=== PATIENT | male | born 1950 | race Caucasian/White ===

== ENCOUNTER 2023-05-21 18:22 | Inpatient (IN) | payer MEDICARE ==
[2023-05-21] MEDS ORDERED: Calcium Carbonate 500 MG ChewTAB PO PRN (21:51)
[2023-05-21] MEDS ORDERED: Acetaminophen 325 MG TAB PO PRN (21:51)
[2023-05-21] MEDS ORDERED: Magnesium 2 GM/50 ML(in water) 2 GM in Premix 1 BAG IVPB SCH (22:00)
[2023-05-21 23:29] VITALS: BMI 30.2
[2023-05-22 03:33] LABS: #Basophils 0.1 thou/uL (0.0-0.2); #Eosinphils 0.4 thou/uL (0.0-0.7); #Neutrophils 5.7 thou/uL (1.40-6.50); %Basophils 0.9 % (0.0-1.0); %Eosinophils 4.4 % (0.0-10.0); %Lymphocytes 12.4 % (21.0-51.0); %Monocytes 12.4 % (0.0-10.0); %Neutrophils 69.5 % (42.0-75.0); Hematocrit 42.7 % (42.0-52.0); Hemoglobin 13.4 g/dL (14.0-18.0); Mean Corpuscular HGB CONC 31.4 g/dL (32.0-36.0); Mean Corpuscular Hemoglobin 30.5 pg (27.0-31.0); Mean Platelet Volume 10.4 fL (7.4-10.4); Platelet Count 174 10x3/uL (130-400); RBC Distribution Width 13.9 % (11.5-14.5); White Blood Cell (WBC) Count 8.2 10x3/uL (4.8-10.8)
[2023-05-22 03:58] LABS: ALT (SGPT) 49 U/L (8-55); AST (SGOT) 27 U/L (5-34); Alkaline Phosphatase 51 U/L (40-110); Anion Gap 14 mmol/L (10-20); BUN (Urea Nitrogen) 14 mg/dL (8.4-25.7); Bilirubin, Total 2.4 mg/dL (0.2-1.2); Calc. Creatinine Clearance 96 mL/min (70-130); Calcium 8.2 mg/dL (7.8-10.44); Carbon Dioxide 20 mmol/L (23-31); Chloride 106 mmol/L (98-107); Estimated GFR 91; Globulin 2.9 g/dL (2.4-3.5); Glucose 83 mg/dL (83-110); Magnesium 2.2 mg/dL (1.6-2.6); Potassium 4.1 mmol/L (3.5-5.1); Protein, Total 5.9 g/dL (5.8-8.1); Sodium 136 mmol/L (136-145)
[2023-05-22] MEDS ORDERED: Communication Order-Pharmacy FS SCH ×3 (08:20→09:30)
[2023-05-22] MEDS ORDERED: FLU VACC QS2023(65UP)/MF59C/PF 60 MCG/0.5 ML SYRINGE IM ONE (09:00)
[2023-05-22] MEDS: Furosemide 20 MG/2 ML VIAL SLOW IVP SCH (09:20)
[2023-05-22] MEDS: Famotidine/PF 20 mg/2ml Vial SLOW IVP SCH ×2 (09:20→21:39)
[2023-05-22] MEDS: Digoxin 0.25 MG TAB PO SCH (09:20)
[2023-05-22 10:07] LABS: Hematocrit 41.9 % (42.0-52.0); Hemoglobin 13.6 g/dL (14.0-18.0); Platelet Count 202 10x3/uL (130-400)
[2023-05-22] MEDS: Sodium Chloride 0.9% 1,000 ML IV SCH (19:30)
[2023-05-23 03:30] LABS: #Basophils 0.1 thou/uL (0.0-0.2); #Eosinphils 0.3 thou/uL (0.0-0.7); #Monocytes 1.2 thou/uL (0.11-0.59); #Neutrophils 6.5 thou/uL (1.40-6.50); %Basophils 0.5 % (0.0-1.0); %Eosinophils 3.4 % (0.0-10.0); %Lymphocytes 14.3 % (21.0-51.0); %Monocytes 12.6 % (0.0-10.0); Hematocrit 42.8 % (42.0-52.0); Hemoglobin 14.2 g/dL (14.0-18.0); Mean Corpuscular HGB CONC 33.2 g/dL (32.0-36.0); Mean Corpuscular Hemoglobin 30.5 pg (27.0-31.0); Platelet Count 209 10x3/uL (130-400); RBC Distribution Width 13.7 % (11.5-14.5); Red Blood Cell (RBC) Count 4.65 mill/uL (4.70-6.10); White Blood Cell (WBC) Count 9.5 10x3/uL (4.8-10.8)
[2023-05-23 03:53] LABS: ALT (SGPT) 36 U/L (8-55); AST (SGOT) 14 U/L (5-34); Albumin 3.3 g/dL (3.4-4.8); Alkaline Phosphatase 55 U/L (40-110); Anion Gap 12 mmol/L (10-20); BUN (Urea Nitrogen) 13 mg/dL (8.4-25.7); Bilirubin, Total 1.8 mg/dL (0.2-1.2); Calc. Creatinine Clearance 92 mL/min (70-130); Calcium 8.4 mg/dL (7.8-10.44); Carbon Dioxide 25 mmol/L (23-31); Cardiac Risk 9.3 (Less than 4.5); Chloride 104 mmol/L (98-107); Cholesterol 139 mg/dl (< 200 Desired); Estimated GFR 87; Globulin 2.8 g/dL (2.4-3.5); Glucose 94 mg/dL (83-110); HDL Cholesterol 15 mg/dL (>60 Neg Risk); LDL Cholesterol, Calculated 109 mg/dL; Potassium 3.8 mmol/L (3.5-5.1); Protein, Total 6.1 g/dL (5.8-8.1); Sodium 137 mmol/L (136-145); Triglycerides 74 mg/dL (Less than 150)
[2023-05-23] MEDS: Sodium Chloride 0.9% 1,000 ML IV SCH ×3 (07:37→21:08)
[2023-05-23] MEDS: Famotidine/PF 20 mg/2ml Vial SLOW IVP SCH ×2 (08:12→21:11)
[2023-05-23] MEDS: Furosemide 20 MG/2 ML VIAL SLOW IVP SCH (08:13)
[2023-05-23] MEDS: Digoxin 0.25 MG TAB PO SCH (08:13)
[2023-05-23] MEDS ORDERED: Amiodarone 150 MG in Dextrose 5% in Water 100 ML IVPB SCH (10:30)
[2023-05-23] MEDS ORDERED: Metoprolol Tartrate 25 MG TAB PO SCH (10:30)
[2023-05-23] MEDS: Amiodarone 450 MG in Dextrose 5% in Water 250 ML IVPB SCH (12:15)
[2023-05-23] MEDS: Metoprolol Tartrate 25 MG TAB PO SCH (21:11)
[2023-05-24] MEDS: Sodium Chloride 0.9% 1,000 ML IV SCH (03:12)
[2023-05-24] MEDS: Metoprolol Tartrate 25 MG TAB PO SCH ×2 (06:00→22:10)
[2023-05-24] MEDS ORDERED: Sodium Chloride 0.9% 1,000 ML IV SCH ×2 (06:00→09:18)
[2023-05-24 06:42] LABS: #Eosinphils 0.3 thou/uL (0.0-0.7); #Neutrophils 6.8 thou/uL (1.40-6.50); %Basophils 0.4 % (0.0-1.0); %Eosinophils 2.9 % (0.0-10.0); %Lymphocytes 12.9 % (21.0-51.0); %Neutrophils 72.6 % (42.0-75.0); Hematocrit 42.8 % (42.0-52.0); Hemoglobin 14.1 g/dL (14.0-18.0); Mean Corpuscular HGB CONC 32.9 g/dL (32.0-36.0); Mean Corpuscular Hemoglobin 30.3 pg (27.0-31.0); Mean Corpuscular Volume 91.8 fl (78.0-98.0); Mean Platelet Volume 10.1 fL (7.4-10.4); Platelet Count 219 10x3/uL (130-400); Red Blood Cell (RBC) Count 4.66 mill/uL (4.70-6.10); White Blood Cell (WBC) Count 9.3 10x3/uL (4.8-10.8)
[2023-05-24] MEDS ORDERED: Midazolam HCl 2 mg/2 ml Vial ONE (07:03)
[2023-05-24] MEDS ORDERED: fentaNYL 50 mcg/mL 1 mL Vial ONE (07:03)
[2023-05-24] MEDS ORDERED: Heparin 10,000 UNITS/ 10 ML VIAL ONE (07:03)
[2023-05-24 07:05] LABS: Digoxin 1.25 ng/mL (0.8-2.0)
[2023-05-24 07:15] LABS: ALT (SGPT) 28 U/L (8-55); AST (SGOT) 12 U/L (5-34); Albumin 3.3 g/dL (3.4-4.8); Alkaline Phosphatase 54 U/L (40-110); Anion Gap 14 mmol/L (10-20); BUN (Urea Nitrogen) 14 mg/dL (8.4-25.7); Calc. Creatinine Clearance 86 mL/min (70-130); Calcium 8.4 mg/dL (7.8-10.44); Carbon Dioxide 25 mmol/L (23-31); Chloride 101 mmol/L (98-107); Estimated GFR 85; Globulin 3.1 g/dL (2.4-3.5); Glucose 96 mg/dL (83-110); Potassium 3.9 mmol/L (3.5-5.1); Protein, Total 6.4 g/dL (5.8-8.1); Sodium 136 mmol/L (136-145)
[2023-05-24] MEDS: Digoxin 0.125 MG TAB PO SCH (08:15)
[2023-05-24] MEDS: Famotidine/PF 20 mg/2ml Vial SLOW IVP SCH ×2 (08:16→22:09)
[2023-05-24] MEDS: Furosemide 20 MG/2 ML VIAL SLOW IVP SCH (08:16)
[2023-05-24] MEDS ORDERED: Protamine Sulfate 50 MG/5 ML VIAL ONE (09:02)
[2023-05-24] MEDS ORDERED: Sodium Chloride 0.9% 200 ML IV PRN (09:17)
[2023-05-24] MEDS ORDERED: Nitroglycerin 0.4 MG TAB (25 Tab Bottle) SL PRN (09:17)
[2023-05-24] MEDS ORDERED: Acetaminophen/Codeine 30-300mg Tablet PO PRN ×2 (09:17)
[2023-05-24] MEDS ORDERED: Iopamidol 370 76% 100 ML VIAL ONE (10:41)
[2023-05-24] MEDS: Amiodarone 450 MG in Dextrose 5% in Water 250 ML IVPB SCH (11:10)
[2023-05-25] MEDS: Amiodarone 450 MG in Dextrose 5% in Water 250 ML IVPB SCH (03:36)
[2023-05-25 04:29] LABS: #Eosinphils 0.2 thou/uL (0.0-0.7); #Monocytes 0.9 thou/uL (0.11-0.59); #Neutrophils 7.2 thou/uL (1.40-6.50); %Basophils 0.4 % (0.0-1.0); %Eosinophils 2.1 % (0.0-10.0); %Lymphocytes 10.9 % (21.0-51.0); %Monocytes 9.2 % (0.0-10.0); %Neutrophils 77.1 % (42.0-75.0); Hematocrit 41.6 % (42.0-52.0); Hemoglobin 13.8 g/dL (14.0-18.0); Mean Corpuscular HGB CONC 33.2 g/dL (32.0-36.0); Mean Corpuscular Hemoglobin 30.6 pg (27.0-31.0); Mean Corpuscular Volume 92.2 fl (78.0-98.0); Mean Platelet Volume 10.4 fL (7.4-10.4); Platelet Count 214 10x3/uL (130-400); RBC Distribution Width 14.1 % (11.5-14.5); Red Blood Cell (RBC) Count 4.51 mill/uL (4.70-6.10); White Blood Cell (WBC) Count 9.4 10x3/uL (4.8-10.8)
[2023-05-25] MEDS ORDERED: Sevoflurane 250 ML INH ANEST BOTTLE ONE (05:16)
[2023-05-25 05:49] LABS: ALT (SGPT) 23 U/L (8-55); AST (SGOT) 12 U/L (5-34); Albumin 3.1 g/dL (3.4-4.8); Alkaline Phosphatase 57 U/L (40-110); Anion Gap 14 mmol/L (10-20); BUN (Urea Nitrogen) 12 mg/dL (8.4-25.7); Bilirubin, Total 1.6 mg/dL (0.2-1.2); Calc. Creatinine Clearance 81 mL/min (70-130); Calcium 8.6 mg/dL (7.8-10.44); Carbon Dioxide 23 mmol/L (23-31); Chloride 103 mmol/L (98-107); Estimated GFR 79; Globulin 2.9 g/dL (2.4-3.5); Glucose 144 mg/dL (83-110); Potassium 3.7 mmol/L (3.5-5.1); Sodium 136 mmol/L (136-145)
[2023-05-25] MEDS ORDERED: fentaNYL 50 mcg/mL 1 mL Vial ONE (07:41)
[2023-05-25] MEDS ORDERED: PROPOFOL 200 MG/20 ML VIAL ONE (07:45)
[2023-05-25] MEDS: Digoxin 0.125 MG TAB PO SCH (09:48)
[2023-05-25] MEDS: Furosemide 20 MG/2 ML VIAL SLOW IVP SCH (09:48)
[2023-05-25] MEDS: Famotidine/PF 20 mg/2ml Vial SLOW IVP SCH ×2 (09:48→21:19)
[2023-05-25] MEDS: Metoprolol Tartrate 25 MG TAB PO SCH ×2 (09:48→21:19)
[2023-05-25] MEDS ORDERED: Diazepam 5 MG TAB PO PRN (16:38)
[2023-05-25] MEDS ORDERED: Communication Order-Pharmacy FS SCH ×2 (16:38→18:12)
[2023-05-25] MEDS ORDERED: Vancomycin (BATCH) 1.5 GM in Premix 1 BAG IVPB SCH (18:15)
[2023-05-25 19:09] LABS: Hematocrit 42.6 % (42.0-52.0); Hemoglobin 14.3 g/dL (14.0-18.0); Platelet Count 221 10x3/uL (130-400)
[2023-05-25] MEDS: Atorvastatin Calcium 10 MG TAB PO SCH (21:19)
[2023-05-26 04:21] LABS: #Basophils 0.1 thou/uL (0.0-0.2); #Eosinphils 0.2 thou/uL (0.0-0.7); #Monocytes 1.2 thou/uL (0.11-0.59); #Neutrophils 6.6 thou/uL (1.40-6.50); %Basophils 0.5 % (0.0-1.0); %Eosinophils 1.6 % (0.0-10.0); %Lymphocytes 14.8 % (21.0-51.0); %Monocytes 13.1 % (0.0-10.0); %Neutrophils 69.7 % (42.0-75.0); Hematocrit 40.7 % (42.0-52.0); Hemoglobin 13.4 g/dL (14.0-18.0); Mean Corpuscular HGB CONC 32.9 g/dL (32.0-36.0); Mean Corpuscular Hemoglobin 30.4 pg (27.0-31.0); Mean Corpuscular Volume 92.3 fl (78.0-98.0); Mean Platelet Volume 10.2 fL (7.4-10.4); Platelet Count 212 10x3/uL (130-400); RBC Distribution Width 13.9 % (11.5-14.5); Red Blood Cell (RBC) Count 4.41 mill/uL (4.70-6.10); White Blood Cell (WBC) Count 9.4 10x3/uL (4.8-10.8)
[2023-05-26 07:38] LABS: ALT (SGPT) 19 U/L (8-55); AST (SGOT) 15 U/L (5-34); Albumin 3.2 g/dL (3.4-4.8); Alkaline Phosphatase 53 U/L (40-110); Anion Gap 13 mmol/L (10-20); BUN (Urea Nitrogen) 10 mg/dL (8.4-25.7); Bilirubin, Total 2.3 mg/dL (0.2-1.2); Calc. Creatinine Clearance 93 mL/min (70-130); Calcium 8.2 mg/dL (7.8-10.44); Carbon Dioxide 23 mmol/L (23-31); Chloride 102 mmol/L (98-107); Estimated GFR 94; Glucose 96 mg/dL (83-110); Potassium 3.7 mmol/L (3.5-5.1); Protein, Total 6.2 g/dL (5.8-8.1); Sodium 134 mmol/L (136-145)
[2023-05-26 07:40] LABS: Digoxin 0.94 ng/mL (0.8-2.0)
[2023-05-26] MEDS: Furosemide 20 MG/2 ML VIAL SLOW IVP SCH (08:57)
[2023-05-26] MEDS: Digoxin 0.125 MG TAB PO SCH (08:57)
[2023-05-26] MEDS: Famotidine/PF 20 mg/2ml Vial SLOW IVP SCH ×2 (08:57→20:58)
[2023-05-26] MEDS: Metoprolol Tartrate 25 MG TAB PO SCH ×2 (08:58→20:57)
[2023-05-26] MEDS: Amiodarone 450 MG in Dextrose 5% in Water 250 ML IVPB SCH (11:00)
[2023-05-26] MEDS: Atorvastatin Calcium 10 MG TAB PO SCH (20:56)
[2023-05-27 04:38] LABS: #Basophils 0.1 thou/uL (0.0-0.2); #Eosinphils 0.3 thou/uL (0.0-0.7); #Monocytes 1.1 thou/uL (0.11-0.59); %Basophils 0.8 % (0.0-1.0); %Eosinophils 2.9 % (0.0-10.0); Hematocrit 42.3 % (42.0-52.0); Mean Corpuscular HGB CONC 33.1 g/dL (32.0-36.0); Mean Corpuscular Hemoglobin 30.2 pg (27.0-31.0); Mean Corpuscular Volume 91.2 fl (78.0-98.0); Mean Platelet Volume 10.9 fL (7.4-10.4); Platelet Count 219 10x3/uL (130-400); RBC Distribution Width 14.1 % (11.5-14.5); Red Blood Cell (RBC) Count 4.64 mill/uL (4.70-6.10); White Blood Cell (WBC) Count 8.8 10x3/uL (4.8-10.8)
[2023-05-27 05:05] LABS: ALT (SGPT) 20 U/L (8-55); AST (SGOT) 27 U/L (5-34); Albumin 3.1 g/dL (3.4-4.8); Alkaline Phosphatase 52 U/L (40-110); Anion Gap 13 mmol/L (10-20); BUN (Urea Nitrogen) 14 mg/dL (8.4-25.7); Calc. Creatinine Clearance 81 mL/min (70-130); Calcium 8.6 mg/dL (7.8-10.44); Carbon Dioxide 24 mmol/L (23-31); Chloride 102 mmol/L (98-107); Estimated GFR 86; Globulin 3.6 g/dL (2.4-3.5); Glucose 92 mg/dL (83-110); Potassium 4.1 mmol/L (3.5-5.1); Protein, Total 6.7 g/dL (5.8-8.1); Sodium 135 mmol/L (136-145)
[2023-05-27] MEDS: Metoprolol Tartrate 25 MG TAB PO SCH (05:16)
[2023-05-27] MEDS ORDERED: Vancomycin (BATCH) 1.5 GM in Premix 1 BAG IVPB SCH (06:00)
[2023-05-27] MEDS ORDERED: Fentanyl 250 MCG/5 ML VIAL ONE (06:10)
[2023-05-27] MEDS ORDERED: Midazolam HCl 2 mg/2 ml Vial ONE ×2 (06:10)
[2023-05-27] MEDS ORDERED: PHENYLEPHRINE-NS 100 MCG/ML 10 ML SYRINGE ONE ×2 (06:11→07:07)
[2023-05-27] MEDS ORDERED: Aminocaproic Acid 5 GM/20 ML VIAL ONE ×2 (06:12→07:48)
[2023-05-27] MEDS ORDERED: PROPOFOL 20 ML ONE (06:13)
[2023-05-27] MEDS ORDERED: Lidocaine 1% PF 5 ML VIAL ONE (06:15)
[2023-05-27] MEDS ORDERED: Vecuronium 10 MG VIAL ONE (06:15)
[2023-05-27] MEDS ORDERED: Sterile Water 10 ML ONE (06:16)
[2023-05-27] MEDS ORDERED: Dexamethasone 4 mg/ml Vial ONE (06:16)
[2023-05-27] MEDS ORDERED: EPINEPHrine 1 MG/ML VIAL ONE (06:16)
[2023-05-27] MEDS ORDERED: Albumin 5% 500 ML ONE ×2 (06:17→10:16)
[2023-05-27] MEDS ORDERED: Bupivacaine PF 0.5% 30 ML VIAL ONE (06:17)
[2023-05-27] MEDS ORDERED: Heparin 10,000 UNITS/1 ML VIAL 30,000 UNITS in Sodium Chloride 0.9% 1,000 ML FS SCH (06:45)
[2023-05-27] MEDS ORDERED: Sodium Chloride 0.9% 100 ML ONE (07:29)
[2023-05-27] MEDS ORDERED: CEFAZOLIN 2 GM VIAL ONE (07:29)
[2023-05-27] MEDS ORDERED: CEFAZOLIN 2 GM in Sodium Chloride 0.9% 100 ML IVPB SCH (07:30)
[2023-05-27] MEDS ORDERED: Thrombin 5000 UNITS/5 ML VIAL ONE (07:48)
[2023-05-27] MEDS ORDERED: Sodium Bicarb 50 MEQ/50 ML Abboject 8.4% SYRINGE ONE (07:48)
[2023-05-27] MEDS ORDERED: Potassium Chloride 60 MEQ/30 ML VIAL ONE (07:48)
[2023-05-27] MEDS ORDERED: Heparin 30,000 units/30 ml VIAL ONE (07:48)
[2023-05-27] MEDS ORDERED: Magnesium 5 GM/10 ML VIAL ONE (07:48)
[2023-05-27] MEDS ORDERED: Lidocaine 2% PF 100 mg/5 ml Syringe ONE (07:48)
[2023-05-27] MEDS ORDERED: Calcium Chloride 1 GM/10 ML Abboject SYRINGE ONE (07:48)
[2023-05-27] MEDS ORDERED: Mannitol 12.5 GM/50 ML ONE (07:48)
[2023-05-27] MEDS ORDERED: Protamine Sulfate 250 MG/25 ML VIAL ONE (07:48)
[2023-05-27] MEDS ORDERED: Vancomycin 1 GM VIAL ONE (07:48)
[2023-05-27] MEDS ORDERED: Milrinone 10 MG/10 ML VIAL ONE (08:31)
[2023-05-27] MEDS ORDERED: Rocuronium Bromide 10 MG/ML (10ML VIAL) ONE (08:43)
[2023-05-27] MEDS ORDERED: Milrinone Lactate/D5W 20 MG in Premix 1 BAG IV SCH (08:45)
[2023-05-27 11:19] LABS: Actual Bicarbonate (HCO3a) 22.1 mEq/L (22-28); Base Excess (BEa) -2.3 mEq/L (-2.0 to +3.0); CO2 Tension 36.8 mmHg (35.0-45.0); Calcium, Ionized (arterial) 1.18 mmol/L (1.12-1.30); Hematocrit-ABG 34 % (42.0-52.0); Hemoglobin (Hb) 11.7 g/dL (14.0-18.0); O2 Tension (PaO2), arterial 90.5 mmHg (> 70.0); Potassium - ABG Lab 3.62 mmol/L (3.70-5.30); pH, Arterial 7.397 (7.35-7.45)
[2023-05-27 11:24] LABS: Puncture Site Arterial Line
[2023-05-27] MEDS ORDERED: Bisacodyl 5 MG TAB PO PRN (11:29)
[2023-05-27] MEDS ORDERED: Morphine 2 MG/ML VIAL SLOW IVP PRN (11:29)
[2023-05-27] MEDS ORDERED: niCARdipine 25 MG in Sodium Chloride 0.9% 250 ML 250 ML IVPB PRN (11:29)
[2023-05-27] MEDS ORDERED: traMADol HCl 50 MG TAB PO PRN ×2 (11:29)
[2023-05-27] MEDS ORDERED: Mag-Al 1200 mg/1200 mg/30 ML UDCUP PO PRN (11:29)
[2023-05-27] MEDS ORDERED: Hetastarch 6% 500 ML 500 ML IVPB PRN (11:29)
[2023-05-27] MEDS ORDERED: Bisacodyl 10 MG SUPP PR PRN (11:29)
[2023-05-27] MEDS ORDERED: Acetaminophen 325 MG TAB PO PRN (11:29)
[2023-05-27] MEDS ORDERED: Nitroglycerin 50 MG/250 ML BOT 250 ML IVPB PRN (11:29)
[2023-05-27] MEDS ORDERED: Guaifenesin DM 100-10/5 ML UDCUP PO PRN (11:29)
[2023-05-27] MEDS ORDERED: Magnesium 2 GM/50 ML(in water) 2 GM in Premix 1 BAG IVPB SCH (11:29)
[2023-05-27] MEDS ORDERED: Amiodarone 450 MG in Dextrose 5% in Water 250 ML IVPB SCH (11:29)
[2023-05-27] MEDS ORDERED: NOREPINEPHRINE 8 MG/250 ML-D5W 250 ML IVPB PRN (11:29)
[2023-05-27] MEDS ORDERED: fentaNYL 50 mcg/mL 1 mL Vial SLOW IVP PRN ×2 (11:29)
[2023-05-27] MEDS ORDERED: Promethazine HCl 25 MG/ML VIAL IM PRN (11:29)
[2023-05-27] MEDS ORDERED: Ondansetron PF 4 MG/2 ML Vial IVP PRN (11:29)
[2023-05-27] MEDS ORDERED: Ipratropium/Albuterol 3 ML NEB NEB PRN (11:29)
[2023-05-27] MEDS: Insulin Regular 300 UNITS/3 ML VIAL SC PRN ×2 (11:59→16:35)
[2023-05-27] MEDS: Ketorolac Tromethamine 30 MG/ML VIAL IVP SCH ×3 (11:59→23:10)
[2023-05-27] MEDS: D5 1/2 NS w/20 mEq KCL 1,000 ML IV SCH (11:59)
[2023-05-27] MEDS ORDERED: Dextrose 5% in Water 1,000 ML IV PRN (12:00)
[2023-05-27] MEDS ORDERED: Dextrose 50% Abboject 50 ML SYRINGE SLOW IVP PRN (12:00)
[2023-05-27] MEDS ORDERED: HUMULIN R 100 UNITS in Sodium Chloride 0.9% 100 ML IVPB SCH (12:00)
[2023-05-27] MEDS ORDERED: Glucagon 1 MG/ML KIT SC PRN (12:00)
[2023-05-27 12:01] LABS: INR-International Normal Ratio 1.6; PTT 30.6 sec (22.9-36.1); Prothrombin Time 19.9 sec (12.0-14.7)
[2023-05-27 12:03] LABS: Anion Gap 14 mmol/L (10-20); BUN (Urea Nitrogen) 14 mg/dL (8.4-25.7); Calc. Creatinine Clearance 89 mL/min (70-130); Calcium 8.1 mg/dL (7.8-10.44); Carbon Dioxide 20 mmol/L (23-31); Chloride 108 mmol/L (98-107); Estimated GFR 90; Glucose 142 mg/dL (83-110); Potassium 3.6 mmol/L (3.5-5.1); Sodium 138 mmol/L (136-145)
[2023-05-27 12:06] LABS: #Basophils 0.1 thou/uL (0.0-0.2); #Eosinphils 0.2 thou/uL (0.0-0.7); #Neutrophils 12.1 thou/uL (1.40-6.50); %Basophils 0.4 % (0.0-1.0); %Eosinophils 1.1 % (0.0-10.0); %Lymphocytes 6.5 % (21.0-51.0); %Neutrophils 84.3 % (42.0-75.0); Mean Corpuscular HGB CONC 32.9 g/dL (32.0-36.0); Mean Corpuscular Hemoglobin 31.1 pg (27.0-31.0); Mean Platelet Volume 10.5 fL (7.4-10.4); Platelet Count 139 10x3/uL (130-400); RBC Distribution Width 14.1 % (11.5-14.5); Red Blood Cell (RBC) Count 3.47 mill/uL (4.70-6.10); White Blood Cell (WBC) Count 14.4 10x3/uL (4.8-10.8)
[2023-05-27 12:08] LABS: Hematocrit 32.8 % (42.0-52.0); Hemoglobin 10.8 g/dL (14.0-18.0)
[2023-05-27 12:09] LABS: Mean Corpuscular Volume 94.5 fl (78.0-98.0)
[2023-05-27] MEDS: Potassium Chloride 20 MEQ/100 ML PREMIX BAG IVPB PRN ×2 (12:14→21:30)
[2023-05-27 14:45] LABS: Actual Bicarbonate (HCO3a) 20.3 mEq/L (22-28); CO2 Tension 34.9 mmHg (35.0-45.0); Calcium, Ionized (arterial) 1.16 mmol/L (1.12-1.30); Carboxyhemoglobin (COHb) 1.2 gm% (0.0-3.0); Hematocrit-ABG 39 % (42.0-52.0); Hemoglobin (Hb) 13.3 g/dL (14.0-18.0); O2 Tension (PaO2), arterial 82.3 mmHg (> 70.0); Potassium - ABG Lab 4.02 mmol/L (3.70-5.30); pH, Arterial 7.383 (7.35-7.45)
[2023-05-27 14:53] LABS: Puncture Site Arterial Line
[2023-05-27 14:54] LABS: ALV-art Gradient 159.275 mmHg (0-20)
[2023-05-27] MEDS: CEFAZOLIN 2 GM in Sodium Chloride 0.9% 100 ML IVPB SCH ×2 (15:13→22:01)
[2023-05-27] MEDS: hydrALAZINE 20 MG/ML VIAL SLOW IVP PRN (15:14)
[2023-05-27 17:12] LABS: Hematocrit 38.4 % (42.0-52.0); Hemoglobin 12.7 g/dL (14.0-18.0)
[2023-05-27 17:27] LABS: Potassium 3.7 mmol/L (3.5-5.1)
[2023-05-27] MEDS: Famotidine/PF 20 mg/2ml Vial SLOW IVP SCH (20:59)
[2023-05-27] MEDS: Atorvastatin Calcium 10 MG TAB PO SCH (20:59)
[2023-05-28 04:33] LABS: #Monocytes 1.4 thou/uL (0.11-0.59); #Neutrophils 13.3 thou/uL (1.40-6.50); %Basophils 0.1 % (0.0-1.0); %Lymphocytes 3.3 % (21.0-51.0); %Monocytes 9.1 % (0.0-10.0); Hematocrit 38.3 % (42.0-52.0); Hemoglobin 12.7 g/dL (14.0-18.0); Mean Corpuscular HGB CONC 33.2 g/dL (32.0-36.0); Mean Corpuscular Hemoglobin 30.8 pg (27.0-31.0); Mean Corpuscular Volume 92.7 fl (78.0-98.0); Mean Platelet Volume 10.3 fL (7.4-10.4); Platelet Count 182 10x3/uL (130-400); RBC Distribution Width 14.5 % (11.5-14.5); Red Blood Cell (RBC) Count 4.13 mill/uL (4.70-6.10); White Blood Cell (WBC) Count 15.3 10x3/uL (4.8-10.8)
[2023-05-28 05:02] LABS: Anion Gap 10 mmol/L (10-20); BUN (Urea Nitrogen) 16 mg/dL (8.4-25.7); Calc. Creatinine Clearance 95 mL/min (70-130); Carbon Dioxide 23 mmol/L (23-31); Chloride 104 mmol/L (98-107); Estimated GFR 93; Glucose 101 mg/dL (83-110); Potassium 4.2 mmol/L (3.5-5.1); Sodium 133 mmol/L (136-145)
[2023-05-28] MEDS: CEFAZOLIN 2 GM in Sodium Chloride 0.9% 100 ML IVPB SCH (06:11)
[2023-05-28] MEDS: Ketorolac Tromethamine 30 MG/ML VIAL IVP SCH ×3 (06:12→17:56)
[2023-05-28] MEDS: hydrALAZINE 20 MG/ML VIAL SLOW IVP PRN (07:34)
[2023-05-28] MEDS: Aspirin 325 MG TAB PO SCH (08:55)
[2023-05-28] MEDS: Magnesium 2 GM/50 ML(in water) 2 GM in Premix 1 BAG IVPB SCH (08:55)
[2023-05-28] MEDS: Amiodarone 200 MG TAB PO SCH ×3 (08:56→21:13)
[2023-05-28] MEDS: Famotidine/PF 20 mg/2ml Vial SLOW IVP SCH (08:56)
[2023-05-28] MEDS: Insulin Regular 300 UNITS/3 ML VIAL SC PRN (09:05)
[2023-05-28] MEDS: D5 1/2 NS w/20 mEq KCL 1,000 ML IV SCH (11:14)
[2023-05-28] MEDS ORDERED: Insulin Glargine 30 UNITS/0.3 ML VIAL SC PRN (11:47)
[2023-05-28] MEDS ORDERED: Famotidine 20 MG TAB PO SCH (21:00)
[2023-05-28] MEDS: Atorvastatin Calcium 10 MG TAB PO SCH (21:13)
[2023-05-29] MEDS: Ketorolac Tromethamine 30 MG/ML VIAL IVP SCH ×6 (00:56→23:35)
[2023-05-29 04:20] LABS: #Eosinphils 0.1 thou/uL (0.0-0.7); #Monocytes 1.7 thou/uL (0.11-0.59); #Neutrophils 12.4 thou/uL (1.40-6.50); %Basophils 0.3 % (0.0-1.0); %Eosinophils 0.3 % (0.0-10.0); %Lymphocytes 5.6 % (21.0-51.0); %Monocytes 11.1 % (0.0-10.0); %Neutrophils 82.2 % (42.0-75.0); Hematocrit 34.9 % (42.0-52.0); Hemoglobin 11.6 g/dL (14.0-18.0); Mean Corpuscular HGB CONC 33.2 g/dL (32.0-36.0); Mean Corpuscular Hemoglobin 30.7 pg (27.0-31.0); Mean Corpuscular Volume 92.3 fl (78.0-98.0); Mean Platelet Volume 10.4 fL (7.4-10.4); Platelet Count 182 10x3/uL (130-400); RBC Distribution Width 14.5 % (11.5-14.5); Red Blood Cell (RBC) Count 3.78 mill/uL (4.70-6.10); White Blood Cell (WBC) Count 15.1 10x3/uL (4.8-10.8)
[2023-05-29 04:45] LABS: Anion Gap 10 mmol/L (10-20); BUN (Urea Nitrogen) 18 mg/dL (8.4-25.7); Calc. Creatinine Clearance 98 mL/min (70-130); Carbon Dioxide 24 mmol/L (23-31); Chloride 102 mmol/L (98-107); Estimated GFR 93; Glucose 103 mg/dL (83-110); Sodium 132 mmol/L (136-145)
[2023-05-29] MEDS: Amiodarone 200 MG TAB PO SCH ×3 (08:21→20:59)
[2023-05-29] MEDS: Magnesium 2 GM/50 ML(in water) 2 GM in Premix 1 BAG IVPB SCH (08:21)
[2023-05-29] MEDS: Aspirin 325 MG TAB PO SCH (08:21)
[2023-05-29] MEDS ORDERED: Guaifenesin DM 100-10/5 ML UDCUP PO PRN (16:25)
[2023-05-29] MEDS ORDERED: Potassium Chloride 10 MEQ TAB PO SCH (16:25)
[2023-05-29] MEDS ORDERED: Aspirin 325 mg Enteric Coated Tablet PO SCH (16:25)
[2023-05-29] MEDS ORDERED: diphenhydrAMINE 25 MG CAP PO PRN (16:25)
[2023-05-29] MEDS ORDERED: Mineral Oil ENEMA PR PRN (16:25)
[2023-05-29] MEDS ORDERED: Bisacodyl 10 MG SUPP PR PRN (16:25)
[2023-05-29] MEDS ORDERED: Bisacodyl 5 MG TAB PO PRN (16:25)
[2023-05-29] MEDS ORDERED: Mag-Al 1200 mg/1200 mg/30 ML UDCUP PO PRN (16:25)
[2023-05-29] MEDS ORDERED: Artificial Tear Sol 15 ML BOT EA EYE PRN (16:25)
[2023-05-29] MEDS ORDERED: Furosemide 40 MG TAB PO SCH (16:25)
[2023-05-29] MEDS ORDERED: Zolpidem Tartrate 5 MG TAB PO PRN (16:25)
[2023-05-29] MEDS ORDERED: Nitroglycerin 0.4 MG TAB (25 Tab Bottle) SL PRN (16:25)
[2023-05-29] MEDS ORDERED: Benzocaine/Menthol 1 LOZ LOZ PO PRN (18:23)
[2023-05-29] MEDS: Atorvastatin Calcium 10 MG TAB PO SCH (20:59)
[2023-05-30] MEDS: Ketorolac Tromethamine 30 MG/ML VIAL IVP SCH ×2 (05:26→12:20)
[2023-05-30 06:17] LABS: Anion Gap 11 mmol/L (10-20); BUN (Urea Nitrogen) 20 mg/dL (8.4-25.7); Calc. Creatinine Clearance 103 mL/min (70-130); Carbon Dioxide 25 mmol/L (23-31); Chloride 103 mmol/L (98-107); Estimated GFR 94; Glucose 92 mg/dL (83-110); Magnesium 2.3 mg/dL (1.6-2.6); Sodium 135 mmol/L (136-145)
[2023-05-30] MEDS: Aspirin 325 mg Enteric Coated Tablet PO SCH (09:19)
[2023-05-30] MEDS: Potassium Chloride 10 MEQ TAB PO SCH (09:20)
[2023-05-30] MEDS: Furosemide 40 MG TAB PO SCH (09:20)
[2023-05-30] MEDS: Amiodarone 200 MG TAB PO SCH ×3 (09:20→19:40)
[2023-05-30] MEDS: Atorvastatin Calcium 10 MG TAB PO SCH (19:40)
[2023-05-31 06:42] LABS: Anion Gap 10 mmol/L (10-20); BUN (Urea Nitrogen) 20 mg/dL (8.4-25.7); Calc. Creatinine Clearance 106 mL/min (70-130); Carbon Dioxide 26 mmol/L (23-31); Chloride 103 mmol/L (98-107); Estimated GFR 95; Glucose 87 mg/dL (83-110); Potassium 3.9 mmol/L (3.5-5.1); Sodium 135 mmol/L (136-145)
[2023-05-31] MEDS: Potassium Chloride 10 MEQ TAB PO SCH (09:00)
[2023-05-31] MEDS: Amiodarone 200 MG TAB PO SCH (09:00)
[2023-05-31] MEDS: Aspirin 325 mg Enteric Coated Tablet PO SCH (09:00)
[2023-05-31] MEDS: Furosemide 40 MG TAB PO SCH (09:00)
[2023-05-31 10:38] VITALS: TEMP 98.5
[2023-05-31 12:05] VITALS: BP 131/65
== END 2023-05-31 13:40 | disposition home or self-care (01) | DRG 216 ==
LOC: CCU 20:58 → 2NO 05-23 16:56 → CCU 05-27 10:39 → 2NO 05-29 15:31
PROVIDERS: ADMIT Family Medicine; ATTEND Family Medicine
PROC: 4A023N8 Measurement of Cardiac Sampling and Pressure, Bilateral, Percutaneous Approach (ICD-10-PCS; principal; 2023-05-24)
PROC: B2111ZZ Fluoroscopy of Multiple Coronary Arteries using Low Osmolar Contrast (ICD-10-PCS; 2023-05-24)
PROC: B2121ZZ Fluoroscopy of Single Coronary Artery Bypass Graft using Low Osmolar Contrast (ICD-10-PCS; 2023-05-24)
PROC: B2151ZZ Fluoroscopy of Left Heart using Low Osmolar Contrast (ICD-10-PCS; 2023-05-24)
PROC: 4A1239Z Monitoring of Cardiac Output, Percutaneous Approach (ICD-10-PCS; 2023-05-24)
PROC: B24BZZ4 Ultrasonography of Heart with Aorta, Transesophageal (ICD-10-PCS; 2023-05-25)
PROC: 02UG0JZ Supplement Mitral Valve with Synthetic Substitute, Open Approach (ICD-10-PCS; 2023-05-27)
PROC: 02580ZZ Destruction of Conduction Mechanism, Open Approach (ICD-10-PCS; 2023-05-27)
PROC: 02L70CK Occlusion of Left Atrial Appendage with Extraluminal Device, Open Approach (ICD-10-PCS; 2023-05-27)
PROC: 5A1221Z Performance of Cardiac Output, Continuous (ICD-10-PCS; 2023-05-27)
PROC: 4A133R1 Monitoring of Arterial Saturation, Peripheral, Percutaneous Approach (ICD-10-PCS; 2023-05-27)
PROC: 3E033XZ Introduction of Vasopressor into Peripheral Vein, Percutaneous Approach (ICD-10-PCS; 2023-05-27)
PROC: 30233J1 Transfusion of Nonautologous Serum Albumin into Peripheral Vein, Percutaneous Approach (ICD-10-PCS; 2023-05-27)
DX: I34.0 Nonrheumatic mitral (valve) insufficiency (principal); I51.1 Rupture of chordae tendineae, not elsewhere classified; I10 Essential (primary) hypertension; I48.91 Unspecified atrial fibrillation; I45.81 Long QT syndrome; R74.01 Elevation of levels of liver transaminase levels; I34.1 Nonrheumatic mitral (valve) prolapse; Z82.49 Family history of ischemic heart disease and other diseases of the circulatory system; Z79.899 Other long term (current) drug therapy; Z98.890 Other specified postprocedural states
CPT/HCPCS: 36415; 36416; 36430; 71045; 71250; 80048; 80053; 80061; 80162; 82550; 82805; 83605; 83690; 83735; 83880; 84443; 84484; 85025; 85610; 85730; 86850; 86900; 86901; 93005; 93010; 93312; 93460; 93798; 94002; 96374; 96376; 99152; 99153; A4311; C1751; C1769; C1776; C1889; C1894; J0171; J0282; J0360; J1100; J1160; J1644; J1650; J1815; J1885; J1940; J2001; J2150; J2250; J2260; J2704; J2720; J3010; J3370; J3475; J3480; J3490; J7050; J7070; P9045; Q9967; S0017; S0020; S0028